=== PATIENT | male | born 1985 | race African-American/Black ===

== ENCOUNTER 2017-04-16 21:05 | Emergency (ER) | payer SELFPAY ==
[~2017-04-16] VITALS: Ht 157.5 cm; Wt 102.0 kg
[2017-04-17 01:34] LABS: BASOPHILS % 0.8 % (0.0-2.0); EOSINOPHILS % 3.6 % (0.0-5.0); HEMATOCRIT. 43.2 % (42.0-52.0); HEMOGLOBIN. 14.5 g/dL (14.0-18.0); LYMPHOCYTES % 58.5 % (20.0-50.0); MEAN CORPUSCULAR HEMOGLOBIN 29.1 pg (28.0-32.0); MEAN CORPUSCULAR VOLUME 86.8 fL (80.0-94.0); MONOCYTES % 7.4 % (2.0-8.0); NEUTROPHILS % 29.7 % (40.0-76.0); PLATELET 202 x1000/uL (130-400); RED BLOOD CELL COUNT 4.98 mill/uL (4.7-6.1); RED CELL DISTRIBUTION WIDTH 14.3 % (11.6-14.6)
[2017-04-17 01:37] LABS: CHLORIDE 107 mEq/L (98-107)
[2017-04-17 01:40] LABS: PARTIAL THROMBOPLASTIN TIME 25.5 sec (24.0-34.0); PROTHROMBIN TIME 10.1 sec
[2017-04-17 01:46] LABS: CARBON DIOXIDE 29 mEq/L (21-32)
[2017-04-17 02:35] VITALS: BP 121/69
== END 2017-04-17 03:00 | disposition home or self-care (01) ==
LOC: ER 21:05
DX: S30.1XXA Contusion of abdominal wall, initial encounter (principal); K64.8 Other hemorrhoids; G44.89 Other headache syndrome; X58.XXXA Exposure to other specified factors, initial encounter; Y93.89 Activity, other specified; Y92.89 Other specified places as the place of occurrence of the external cause; Y99.8 Other external cause status
CPT/HCPCS: 36415; 80053; 83690; 85025; 85610; 85730; 99284